=== PATIENT | female | born 1965 | race Caucasian/White ===

== ENCOUNTER → 2018-01-30 14:11 | Outpatient (CLI) | payer MEDICAID, SELFPAY ==
--- NOTE | 2018-01-30 14:12 | CT_ITS ---
STUDY: CT CHEST WITHOUT CONTRAST REASON FOR EXAM: Female, 52 years old. Cough. Chest heaviness. 40 pack-year smoking history. Abnormal chest x-ray. RADIATION DOSAGE (If Supplied By Facility): CTDIvol = ( 7.12 ) mGy, DLP = ( 231.30 ) mGycm TECHNIQUE: Transaxial imaging was performed without the administration of intravenous contrast material. Multiplanar coronal and sagittal images were reformatted. Individualized dose optimization techniques were used for this CT. COMPARISON: Chest x-ray, September 21, 2017. FINDINGS: The lungs are hyperexpanded. There are mild emphysematous changes most marked in the lung apices. There is no mass or infiltrate. There is no demonstrated pleural abnormality. Normal heart and pericardium. There is nonspecific subcentimeter mediastinal lymphadenopathy. Normal hilar regions. Normal unenhanced pulmonary arteries. Normal aorta arch and descending thoracic aorta. There are degenerative changes of the lower thoracic spine. There is no demonstrated abnormality of the visualized upper abdomen. CT/Chest without Contrast IMPRESSION: 1. Emphysematous changes in lungs without mass or infiltrate. 2. Nonspecific mediastinal lymphadenopathy. 3. Mild degenerative changes of the lower thoracic spine. Electronically Signed: Casper Bowen DO at 17:03 EDT Tel [phone], Service support ,
== END ==
PROVIDERS: Family Provider Internal Medicine; PCP Internal Medicine; Visit Provider Nurse Practitioner Acute Care
DX: R05 Cough (principal)
CPT/HCPCS: 71250

== ENCOUNTER 2018-07-27 10:06 | Day surgery (SDC) | payer MEDICAID, SELFPAY ==
--- NOTE | 2018-07-27 | IMM_PTH ---
PATIENT: CRISTIANA VERA I LOC: EN U#:[id number] AGE/SX: 53/F ROOM: RE07/27/[address]: Dr. Vineet Stacy MD : 1965 BED: DIS: 07/27/2018 SPEC #: [id number] RECD: 07/30/18 10:09 STATUS: NAZ LATRELL #: [id number] HOLGER: 07/27/18 00:[address]: Vineet Stacy DEPT: IMMUNOHISTOCHEMISTRY RECD BY: Waleska Goddard ENTERED: 07/30/18 10:09 SP TYPE: IMMUNO OTHR DR: Dr. Carmela Gonzalez MD Tissues: A - Stomach, NOS B - Stomach, NOS Procedures: H Pylori (initial) PHYSICIAN & INSTITUTION [place] [id number] SPECIMEN INFORMATION: Tissue Source: A ? Antral biopsy, B ? Gastric ulcer biopsy Clinical Info: History of ulcer Specimen Number: [id number] A & B CPT code: 73685 x2 METHODOLOGY: Deparaffinized sections of prefer/formalin-fixed tissue or PAP/DQ stained slides are incubated with monoclonal/polyclonal antibodies/oligonucleotide probes. Localization is made via biotin free immunoperoxidase method. Appropriate controls are performed and reacted as expected. Results on target cell population are indicated in the following table: RESULTS: ANTIBODY / CLONE RESULT Block A H Pylori (polyclonal) negative Block B H Pylori (polyclonal) negative These tests were developed and their performance characteristics determined by [facility]. They may not have been cleared or approved by the U.S. Food and Drug Administration. The FDA has determined that such clearance or approval is not necessary. INTERPRETATION: A. Antral biopsy: Negative for Helicobacter pylori organisms. B. Gastric ulcer biopsy: Negative for Helicobacter pylori organisms. SJ:pawan 07/30/18
--- NOTE | 2018-07-27 | GASB_PTH ---
PATIENT: CRISTIANA VERA I LOC: EN U#:[id number] AGE/SX: 53/F ROOM: RE07/27/[address]: Dr. Vineet Stacy MD : 1965 BED: DIS: 07/27/2018 SPEC #: [id number] RECD: 07/27/18 14:20 STATUS: NAZ LATRELL #: [id number] HOLGER: 07/27/18 00:[address]: Vineet Stacy DEPT: SURGICAL PATHOLOGY RECD BY: Otilio Arana ENTERED: 07/27/18 14:20 SP TYPE: Gastric Bx OTHR DR: Dr. Carmela Gonzalez MD Tissues: A - Gastric mucous membrane B - Gastric mucous membrane Procedures: Surgery Specimen Level IV HEADER OPERATION: EGD ([facility] [place] PRE-OP DIAGNOSIS: History of ulcer TISSUE SUBMITTED: A ? Antral biopsy for H. pylori and pathology, B ? Gastric ulcer biopsy MICROSCOPIC DIAGNOSIS A. Antral biopsy: Mild gastritis. B. Gastric ulcer, biopsy: Mild gastritis. SOL:pawan 07/30/18 COMMENT A & B. The results of immunohistochemistry for Helicobacter pylori will be reported separately ([id number]). MICROSCOPIC DESCRIPTION Slides are reviewed. A & B. The specimen shows fragments of gastric mucosa with chronic inflammatory cell infiltrates in the lamina propria consisting of lymphocytes and plasma cells, consistent with mild chronic gastritis. GROSS DESCRIPTION A - Received in fixative is one container labeled with the patient's name and designated antral biopsy. The specimen consists of two irregular fragments of light logan soft tissue that in aggregate measure 1 x 0.2 x 0.1 cm. The specimen is totally submitted in one cassette. B - Received in fixative is one container labeled with the patient's name and designated gastric ulcer biopsy. The specimen consists of one irregular fragment of light logan soft tissue that measures 0.3 x 0.3 x 0.1 cm. The specimen is totally submitted in one cassette. / SOL:pawan 07/27/18 TC:5 [facility]: [id number] x2
[2018-07-27 10:29] VITALS: BP 111/90; PULSE 83; RESP 18; TEMP 36.7; O2SAT 99; BMI 21.2
--- NOTE | 2018-07-27 11:35 | PCM.HP.STD ---
Problem List (1) Peptic ulcer disease Status: Chronic History of Present Illness Date of Admission: 07/27/18 The patient is a 53 year old F who had an EGD in August of last year which showed a large pyloric ulcer. She was started on omeprazole and I recommended that she come back in in a month to ensure healing but she never followed up. She followed up recently for refill of her omeprazole and I recommended repeat scope to ensure that this is healed. She has no complaints today. Past Medical History Past Medical History (Chronic Problems): Chronic Problems (Last Reviewed 05/28/18 @ 13:54 by Jailyn Rucker) Osteopenia with high risk of fracture (Chronic) Hypoglycemia (Chronic) Osteoporosis (Chronic) Peptic ulcer disease (Chronic) Medical History: Medical History (Last Reviewed 05/28/18 @ 13:54 by Jailyn Rucker) Hypoglycemia (Chronic) E16.2 Osteoporosis (Chronic) M81.0 Peptic ulcer disease (Chronic) K27.9 Epigastric abdominal pain (Acute) R10.13 Unintentional weight loss (Acute) R63.4 Gastric ulcer K25.9 Hepatitis C B19.20 Occult blood in stools R19.5 Rectal prolapse K62.3 1999 & 2002 Current chronic use of systemic steroids Z79.52 Depression F32.9 Diverticulitis K57.92 Nicotine dependence, uncomplicated F17.200 Postmenopausal Z78.0 Seasonal allergies J30.2 Seizures R56.9 Allergies morphine Allergy (Verified 07/27/18 10:27) Swelling Home Medications: Ambulatory Orders Medication Instructions Recorded Loratadine [Loratadine] 10 mg PO DAILY 06/08/16 Oxycodone HCl/Acetaminophen 1 tab PO Q8H PRN PRN 06/08/16 [Percocet 5/325] Amitriptyline HCl [Elavil] 50 mg PO QHS 08/21/17 L.acidoph,Paracasei, B.lactis 1 ea PO DAILY 08/21/17 [Probiotic] alprazolam 1 mg tablet 1 mg PO BID PRN tab 10/26/17 cetirizine 10 mg capsule 10 mg PO QDAY 10/26/17 tizanidine 2 mg tablet 2 mg PO DAILY tab 10/26/17 albuterol sulfate HFA 90 2 puff INHALATION Q4H PRN #18 g 11/30/17 mcg/actuation aerosol inhaler calcium carbonate 600 mg calcium 600 mg PO BID #90 tab 12/19/17 (1,500 mg) tablet cholecalciferol (vitamin D3) 2,000 2,000 unit PO QDAY #90 cap 12/19/17 unit capsule denosumab 60 mg/mL subcutaneous 60 mg SC [id number] #1 ml 12/22/17 syringe polyethylene glycol 3350 17 17 g PO QDAY PRN #238 g 05/17/18 gram/dose oral powder fluticasone 50 mcg/actuation nasal 2 spray INTRANASAL QDAY #15.8 g 05/31/18 spray,suspension docusate sodium 100 mg capsule 100 mg PO QDAY #60 cap 06/12/18 omeprazole 40 mg capsule,delayed 40 mg PO DAILY #60 cap 07/02/18 release simethicone 125 mg capsule 250 mg PO TID #90 cap 07/12/18 Surgical History: Surgical History (Last Reviewed 05/28/18 @ 13:54 by Jailyn Rucker) History of endoscopy Z98.890 2017 history of rectal prolapse history of uterine ablation H/O gastric bypass Z98.890 Surgical History: no surgical history Smoking Status: Current every day smoker Review of Systems Constitutional: Denies: Anorexia, Fever HEENT: Denies: Difficulty Swallowing Cardiovascular: Denies: Chest Pain Respiratory: Denies: Shortness of Breath Gastrointestinal: Denies: Abdominal Pain, Nausea Musculoskeletal: Denies: Joint Tenderness Neurological: Denies: Confusion Psychiatric: Reports: Anxiety VTE Information - Inpt Only VTE Present on Admission: No - Physical Exam General: Alert, Oriented x3 Oral: Moist Mucosa Neck: Supple Lungs: Normal air movement Cardiovascular: Regular rate, Regular Rhythm Abdomen: Soft, Non Tender, Non-Distended Vital Signs Temp Pulse Resp BP Pulse Ox 98.1 F 83 18 111/90 H 99 07/27/18 10:29 07/27/18 10:29 07/27/18 10:29 07/27/18 10:29 07/27/18 10:29 Oxygen Delivery Method Room Air Weight: 112 lb 6.972 oz Body Mass Index (BMI) 21.2 Assessment/Plan All Active Problems (Last Reviewed 05/28/18 @ 13:54 by Jailyn Rucker) Epigastric abdominal pain (Acute) Unintentional weight loss (Acute) 53-year-old female with pyloric ulcer 1. Plan for EGD today to ensure that the ulcer is healed. 2. I explained endoscopy in detail to the patient. I explained the risks including but not limited to stroke or heart attack with anesthesia, perforation of the GI tract, bleeding, infection. I explained that any of these could necessitate further emergency surgery. The patient understands and all questions were answered sufficiently. The patient wishes to proceed with procedure. Vineet Stacy MD Pager: [facility] [address] [place] [address] Office:
--- NOTE | 2018-07-27 11:51 | PCM.OPRPT ---
Problem List (1) Peptic ulcer disease Status: Chronic Report of Operation Date of Procedure: 07/27/18 Pre-Operative Diagnosis: Prepyloric ulcer Post-Operative Diagnosis: 1. Prepyloric ulcer. 2. Hiatal hernia Surgery/Procedure Performed:: EGD with biopsy Specimen's removed: 1. Antrum for H. pylori. 2. Prepyloric ulcer Description of Procedure: The major risks and benefits associated with the procedure were explained to the patient in detail. The patient verbalized understanding and agreement with the same. The patient was then placed in the left lateral decubitus position. IV sedation was started by anesthesia. The endoscope was then advanced under direct visualization over the tongue, into the esophagus, stomach and duodenum. It was slowly withdrawn and the mucosa was carefully evaluated. Duodenal mucosal abnormalities were not visualized. Gastric folds were normal. A biopsy of the antrum was performed with cold forceps. The patient did have a remnant of the prepyloric ulcer with some ulceration of about half of the pyloric channel. Biopsies were taken of the ulcer margin as well as the prepyloric margin. Retroflexed view of the stomach did reveal hiatal hernia. The scope was then withdrawn through the GE junction and careful examination did not demonstrate any mucosal abnormalities. No evidence of Leonard's esophagus was apparent. Careful examination of the remainder of the esophagus was normal. The scope was then withdrawn from the patient and the procedure terminated. It was well tolerated and there were no immediate complications. Recommendations: Continue PPI. The ulcer appears improved but it is still present. I did perform more biopsies to check for malignancy but I would have presume that after a year this would have grown much more if it was a malignancy. I am also rechecking H pylori.
[2018-07-27 11:55] VITALS: BP 102/73; BP 111/90; PULSE 105; RESP 18; TEMP 36.6; O2SAT 97
[2018-07-27 12:00] VITALS: BP 103/62; BP 111/90; PULSE 98; RESP 14; O2SAT 97
[2018-07-27 12:05] VITALS: BP 109/64; BP 111/90; PULSE 82; RESP 16; O2SAT 98
[2018-07-27 12:10] VITALS: BP 105/72; BP 111/90; PULSE 68; RESP 18; TEMP 36.2; O2SAT 100
[2018-07-27 12:23] VITALS: BP 111/90
== END 2018-07-27 12:35 | disposition home or self-care (01) ==
LOC: EN 10:07 → AC 10:08
PROVIDERS: Family Provider Internal Medicine; PCP Internal Medicine; Visit Provider Surgery
PROC: 0DJ08ZZ Inspection of Upper Intestinal Tract, Via Natural or Artificial Opening Endoscopic (ICD-10-PCS; CPT 43235; principal; 2018-07-27 10:55)
DX: K25.3 Acute gastric ulcer without hemorrhage or perforation (principal); K44.9 Diaphragmatic hernia without obstruction or gangrene; K29.70 Gastritis, unspecified, without bleeding; K27.7 Chronic peptic ulcer, site unspecified, without hemorrhage or perforation; R56.9 Unspecified convulsions; M81.0 Age-related osteoporosis without current pathological fracture; F32.9 Major depressive disorder, single episode, unspecified; F41.9 Anxiety disorder, unspecified; F17.200 Nicotine dependence, unspecified, uncomplicated; Z78.0 Asymptomatic menopausal state; Z79.52 Long term (current) use of systemic steroids; Z79.899 Other long term (current) drug therapy; Z86.19 Personal history of other infectious and parasitic diseases; Z98.84 Bariatric surgery status
CPT/HCPCS: 43239; 88305; 88342; J7120

== ENCOUNTER → 2018-10-08 09:37 | Outpatient (CLI) | payer MEDICAID, SELFPAY ==
--- NOTE | 2018-10-08 09:40 | BI_ITS ---
MAMMOGRAPHY - BILATERAL SCREENING REASON FOR EXAM: Female, 53 years old. Routine annual screening examination. PERTINENT HISTORY: Non-contributory. Occasional left breast tenderness. TECHNIQUE: Digital bilateral breast prashanth (3D mammographic acquisition) in the CC and MLO projections. 2-D mediolateral oblique (MLO) and craniocaudad (CC) views of both breasts were obtained. CAD: Full Field Digital Mammography with Computer Added Detection was performed. COMPARISON: Comparison is made with prior study dated October 05, 2017. FINDINGS: Breast Composition: The breasts are heterogeneously dense, which may obscure small masses. There are no dominant masses or suspicious calcifications. A tissue clip marker is once again seen in the slightly upper lateral aspect of the right breast. This is unchanged. No other significant abnormalities are identified. There has been no significant change since the prior study. BI/SCREENING MAMM (CAD), BILAT IMPRESSION: Stable bilateral screening mammogram. Yearly follow-up mammogram recommended. (A) ASSESSMENT CATEGORY: BIRADS Category 2: Benign. A letter regarding these results will be sent to the patient by the facility within 30 days. Approximately 10% of breast cancers are not detected by mammography. A normal mammogram should not delay biopsy of a clinically suspicious abnormality. [id number] Electronically Signed: Baron Henry MD at 8:21 EST Tel [phone], Service support ,
[2018-10-08 10:44] LABS: Absolute Neutrophil Count 3.5 X10^3/uL (2.0-7.7); Basophil# 0.08 X10^3/uL; Basophil% 1.1 % (0-1); Eosinophils% 2.6 % (0-5); Hematocrit 43.9 % (37-47); Hemoglobin 14.3 g/dl (12.0-15.0); Mean Corp Hgb Conc 32.6 g/gl (32-36); Mean Corpuscular Hgb 30.7 pg (27.0-32.0); Mean Corpuscular Volume 94.2 fL (81-99); Mean Platelet Vol. 9.4 fl (6.2-12.0); Monocyte# 0.39 X10^3/uL; Monocyte% 5.2 % (0-10); Neutrophil # 3.47 X10^3/uL (2.7-7.7); Platelet Count 403 K/mm3 (150-450); RBC Distribution Width CV 14.4 % (11.6-14.6); RBC Distribution Width SD 49.2 fl (35.1-43.9); Red Blood Count 4.66 M/mm3 (4.2-5.4); White Blood Count 7.6 K/mm3 (4.4-11.0)
[2018-10-08 10:45] LABS: POSITIVE COUNT NO; POSITIVE DIFFERENTIAL NO; POSITIVE MORPHOLOGY NO
== END ==
PROVIDERS: Family Provider Internal Medicine; PCP Internal Medicine; Referring Provider Internal Medicine; Visit Provider Internal Medicine
DX: Z12.31 Encounter for screening mammogram for malignant neoplasm of breast (principal); K27.9 Peptic ulcer, site unspecified, unspecified as acute or chronic, without hemorrhage or perforation
CPT/HCPCS: 36415; 77063; 77067; 85025

== ENCOUNTER → 2019-03-06 09:47 | Outpatient (CLI) | payer MEDICAID, SELFPAY ==
[2019-02-21 14:04] VITALS: BMI 21.5
[2019-03-06 13:38] LABS: Anion Gap 7 (5-15); BUN 16 mg/dL (7-18); Calcium,Total 9.1 mg/dL (8.5-10.1); Chloride 107 mmol/L (98-107); Creatinine, Serum 0.76 mg/dL (0.55-1.02); EST Glomerular Filtration Rate 84 mL/min (>60); Est Glom Filt Rate - Afr Amer 102 mL/min (>60); Glucose 100 mg/dL (74-106); Potassium 3.8 mmol/L (3.5-5.1); Sodium Level 139 mmol/L (136-145)
== END ==
PROVIDERS: Family Provider Internal Medicine; PCP Internal Medicine; Visit Provider Internal Medicine
DX: M81.0 Age-related osteoporosis without current pathological fracture (principal); K27.9 Peptic ulcer, site unspecified, unspecified as acute or chronic, without hemorrhage or perforation
CPT/HCPCS: 36415; 80048

== ENCOUNTER 2019-05-23 17:59 | Emergency (ER) | payer MEDICAID, SELFPAY ==
[2019-05-14 10:38] VITALS: BMI 21.5
[2019-05-23 18:00] VITALS: BP 117/68; PULSE 111; RESP 15; TEMP 35.8; O2SAT 97; BMI 21.9
--- NOTE | 2019-05-23 18:38 | ED.RN ---
Pt became upset with Dr after she stated that she needed and IV and some nutrition and MD stated that he was going to write her an RX and an IV was not needed. Pt jumped out of bed and stated that she would be calling the law.
--- NOTE | 2019-05-23 18:39 | ED.DCSUM_ITS ---
- ER Visit Summary Date of Service: 05/23/19 Chief Complaint: Sore throat History of Present Illness: The patient is a 53 F who presents with a sore throat that began 2 days ago. Patient went to [facility] emergency department last night and was given a prescription for penicillin. Patient states this has not helped. Patient describes the pain as burning. Patient states the pain is worse with swallowing. Patient states she has been unable to eat or drink anything for the past 2 days. Patient admits to some mild diarrhea. Patient admits to a cough but denies any sputum production. Patient denies any fevers or chills. Patient states she was started on Symbicort recently for her seasonal allergies. Physical Examination: Vital signs are stable. Patient is afebrile. Patient is in no acute distress. Oromucosa is pink and moist. There are white exudates noted on the soft palate, tonsils, tongue, and buccal mucosa. These appear to be consistent with oral candidiasis. Neck is supple. Trachea is midline. There is no JVD noted. Heart was regular rate and rhythm. Lungs are clear and equal bilaterally. Abdomen is soft. Bowel sounds are normal. There is no tenderness. Cranial nerves II through XII are intact. There are no focal motor or sensory deficits noted. Emergency Department Course and Treatment: Patient was advised that this is most likely oral candidiasis. Patient demanded IV fluids because she states she is unable to eat or drink anything. I explained to the patient that she is still well-hydrated and does not need IV fluids at this time. Patient became agitated and irate. Patient was yelling. Patient left the emergency department without signing any papers AGAINST MEDICAL ADVICE. Patient was not treated for her oral candidiasis because she left before any prescriptions could be sent. Patient was yelling when she left saying she was calling the law. Disposition: Discharged home Impression: Oral candidiasis This note was generated with [employer] dictation software. It may contain incorrect words, spelling, and punctuation that were not noted in review of the chart prior to signing ED Disposition - Plan for ED Patient: Disposition: Home or Assisted Living Diagnosis: Oral candidiasis Referrals: Carmela Gonzalez MD [Primary Care Provider] - 3-5 Days
[2019-05-23 18:47] VITALS: RESP 18
== END 2019-05-23 18:48 | disposition home or self-care (01) ==
PROVIDERS: Emergency Provider Emergency Medicine; Family Provider Internal Medicine; PCP Internal Medicine
DX: B37.0 Candidal stomatitis (principal); J30.2 Other seasonal allergic rhinitis; Z72.0 Tobacco use
CPT/HCPCS: 99282

== ENCOUNTER → 2019-06-07 08:39 | Outpatient (CLI) | payer MEDICAID, SELFPAY ==
[2019-06-07 08:18] VITALS: BMI 21.9
[2019-06-07 13:19] LABS: HIV - WCH Non-Reactive (Nonreactive)
== END ==
PROVIDERS: Family Provider Internal Medicine; PCP Internal Medicine; Visit Provider Internal Medicine
DX: B37.0 Candidal stomatitis (principal)
CPT/HCPCS: 36415; 86703

== ENCOUNTER → 2020-01-09 10:07 | Outpatient (CLI) | payer MEDICAID, SELFPAY ==
[2019-12-23 10:11] VITALS: BMI 22.8
--- NOTE | 2020-01-09 15:08 | PFTCOMP ---
COMPLETE PULMONARY FUNCTION TEST INTERPRETATION Brief HPI: Patient is a 54 year old female, currently under the care of Dr. Gonzalez, who presents to [facility] for complete pulmonary function tests secondary to diagnosis of dyspnea. Respiratory therapist reports good effort and reproducible results. Interpretation: Forced expiration spirometry shows no large airways obstructive ventilatory defect with an FEV1 of 106% predicted. There is no significant bronchodilator response by strict ATS criteria. Spirograms are of good quality and plateau normally. The respiratory flow volume loop shows a normal pattern. Lung volumes by body plethysmography show a normal total lung capacity at 5.1 L, 117% predicted. All other lung volumes are within normal limits. Diffusion capacity by carbon monoxide is normal at 75% predicted. The airway resistance is normal. Compared to previous pulmonary function tests from 10/10/17, there has been a significant change in FVC by 15%. Impression: Grossly normal pulmonary function testing
== END ==
PROVIDERS: PCP Internal Medicine; Referring Provider Internal Medicine; Visit Provider Internal Medicine
DX: R06.02 Shortness of breath (principal)
CPT/HCPCS: 94060; 94726; 94729

== ENCOUNTER → 2020-07-15 13:30 | Outpatient (CLI) | payer MEDICAID, SELFPAY ==
[2020-06-24 06:50] VITALS: BMI 23.4
--- NOTE | 2020-07-15 13:31 | CT_ITS ---
STUDY: LOW DOSE CT LUNG CANCER SCREENING REASON FOR EXAM: Female, 55 years old. PT STATED 42 YR 1 PPD SMOKER, NO OTHER HX RADIATION DOSAGE (If Supplied By Facility): CTDIvol = ( 2.01 ) mGy, DLP = ( 66.45 ) mGycm TECHNIQUE: No contrast was administered. Low dose technique was utilized (average mAS-38 and kVp 120). 1.25 mm axial source images with a slice interval of 1.25-mm were reconstructed in lung windows. 2.5 mm axial source images with a slice interval of 2.5-mm were reconstructed in lung windows. 5.0 mm axial source images with a slice interval of 5.0-mm were reconstructed in soft tissue windows. Nodule measured using lung windows on PACS and/or independent workstation with automated measurement of minimum and maximum diameter. Nodule measurement reported as average diameter rounded to the nearest whole number. Growth is defined as an increase ins size of greater than 1.5 mm. COMPARISON: Comparison is made with prior examination of 01/30/2018. NODULES: No pulmonary nodules are seen. Emphysema: Emphysematous changes with bullous formation in the upper lobes more prominent in the right upper lobe. Endobronchial lesion: None Aorta: Unremarkable. Coronary arteries: Coronary artery calcification. Mediastinal nodes: Small benign appearing mediastinal lymph nodes. Other chest and abdominal findings: Small hiatal hernia. CT/Low Dose CT Lung Screening IMPRESSION: Lung-RADS category 2 - Continue annual screening with LDCT in 12 months. IMPORTANT NOTES FOR USE: ACR Lung-RADS Version 1.0 Assessment Categories Release Date: March 17, 2014 Category: Coded 0-4 bases on nodule(s) with highest degree of suspicion. Negative screen is defined as categories 1 and 2; a positive screen is defined as categories 3 and 4. Category 3 and 4A nodules that are unchanged on interval CT should be coded as category 2, and individuals returned to screening in 12 months. Category 4X: Category 3 or 4 nodules with additional imaging findings that increase the suspicion of lung cancer, such as spiculation, GGN that doubles in size in 1 year, enlarged lymph notes, etc. Category Modifiers: S (significant finding unrelated to lung cancer) and C (prior history of treated lung cancer) may be added to the 0-4 Lung-RADS Electronically Signed: Baron Henry, at 14:08 EDT , Service support ,
== END ==
PROVIDERS: PCP Internal Medicine; Referring Provider Internal Medicine Critical Care Medicine; Visit Provider Internal Medicine Critical Care Medicine
DX: Z12.2 Encounter for screening for malignant neoplasm of respiratory organs (principal); F17.210 Nicotine dependence, cigarettes, uncomplicated
CPT/HCPCS: G0297

== ENCOUNTER → 2020-08-05 14:44 | Outpatient (CLI) | payer MEDICAID, SELFPAY ==
[2020-06-24 06:50] VITALS: BMI 23.4
--- NOTE | 2020-08-05 14:45 | ECHOD_ITS ---
Reason For Study: Dyspnea/SOB Procedure This was a 2D Doppler, Color Flow transthoracic echocardiogram. The exam was of adequate technical quality. Exam performed in department. Left Ventricle Normal LV size. Left ventricular systolic function is normal. The estimated ejection fraction is 65 %. No evidence for diastolic dysfunction. No regional wall motion abnormalities noted. Right Ventricle Normal RV size. Normal systolic function. Atria Normal left atrium. Normal right atrium. No doppler evidence for ASD. Mitral Valve There is no mitral annular calcification. Normal mitral valve. Trivial mitral valve insufficiency. Tricuspid Valve Normal tricuspid valve. Trivial tricuspid valve insufficiency. Right ventricular systolic pressure estimated to be 26 mmHg. Aortic Valve Trisinus/trileaflet aortic valve. Normal aortic valve. Pulmonic Valve The pulmonic valve is not well visualized. Great Vessels Normal sized aortic root. Pericardium/Pleural No pericardial effusion. MMode/2D Measurements & Calculations LVIDd: 3.9 cm IVSd: 1.1 cm Ao root diam: 2.7 cm LVIDs: 2.4 cm LVPWd: 0.95 cm LA dimension: 3.3 cm RVDd: 3.2 cm FS: 39.0 % LAV(MOD-bp): 25.0 ml LA A4 area: 10.8 cm2 RA A4 area: 9.4 cm2 LAV(MOD-bp) Indexed: 16.5 ml/m2 LAV(MOD-sp2): 27.5 ml LAV(MOD-sp4): 23.5 ml Time Measurements MV dec time: 0.25 sec Doppler Measurements & Calculations MV E max gabriel: 55.0 cm/sec Lat Peak E' Gabriel: 7.9 cm/sec Med Peak E' Gabriel: 6.8 cm/sec MV A max gabriel: 85.7 cm/sec E/E' lat: 6.9 E/E' med: 8.0 MV E/A: 0.64 MV V2 max: 100.5 cm/sec MV P1/2t max gabriel: 56.9 cm/sec Ao V2 max: 111.6 cm/sec MV max P.0 mmHg MV P1/2t: 76.3 msec Ao max P.0 mmHg MV V2 mean: 47.2 cm/sec MV dec slope: 218.7 cm/sec2 MV mean P.1 mmHg MVA(P1/2t): 2.9 cm2 MV V2 VTI: 17.2 cm LV V1 max: 114.5 cm/sec PA V2 max: 79.0 cm/sec TR max gabriel: 242.1 cm/sec LV V1 max P.2 mmHg TR max P.4 mmHg Interpretation Summary Left ventricular systolic function is normal. The estimated ejection fraction is 65 %. Trivial mitral valve insufficiency. Trivial tricuspid valve insufficiency. Right ventricular systolic pressure estimated to be 26 mmHg. No evidence for diastolic dysfunction. Ordering Physician: Elías Mckinney Referring Physician: Carmela Gonzalez Performed By: Tarik Sargent RCS
== END ==
PROVIDERS: PCP Internal Medicine; Referring Provider Internal Medicine Critical Care Medicine; Visit Provider Internal Medicine Critical Care Medicine
DX: R06.02 Shortness of breath (principal); F17.210 Nicotine dependence, cigarettes, uncomplicated
CPT/HCPCS: 93306

== ENCOUNTER → 2021-02-24 09:54 | Outpatient (CLI) | payer MEDICAID, SELFPAY ==
[2020-09-04 13:09] VITALS: BMI 22.8
[2021-02-24 12:06] LABS: Absolute Lymphocyte Count 2.73 X10^3/uL (0.83-4.51); Absolute Neutrophil Count 3.7 X10^3/uL (2.0-7.7); Basophil# 0.04 X10^3/uL; Basophil% 0.5 % (0-1); Eosinophil# 0.28 X10^3/uL; Eosinophils% 3.8 % (0-5); Hematocrit 37.5 % (37-47); Hemoglobin 12.2 g/dL (12.0-15.0); Lymphocyte # 2.73 X10^3/ul (4.0); Mean Corp Hgb Conc 32.5 g/dL (32-36); Mean Corpuscular Hgb 31.2 pg (27.0-32.0); Mean Corpuscular Volume 95.9 fL (81-99); Mean Platelet Vol. 9.6 fl (6.2-12.0); Monocyte# 0.59 X10^3/uL; NRBC Flagged by Analyzer 0 % (0-5); Neutrophil # 3.71 X10^3/uL (2.7-7.7); Neutrophil % 50.4 % (47-70); Platelet Count 419 K/mm3 (150-450); RBC Distribution Width CV 14.5 % (11.6-14.6); RBC Distribution Width SD 50.8 fl (35.1-43.9); Red Blood Count 3.91 M/mm3 (4.2-5.4); White Blood Count 7.4 K/mm3 (4.4-11.0)
[2021-02-24 12:27] LABS: AST(SGOT) 36 U/L (15-37); Alanine Aminotransfer ALT/SGPT 31 U/L (13-56); Albumin, Serum 3.6 g/dL (3.2-5.0); Alkaline Phosphatase 115 U/L (45-117); Amylase 49 U/L (25-115); Anion Gap 3 (5-15); BUN 24 mg/dL (7-18); Calcium,Total 8.9 mg/dL (8.5-10.1); Chloride 106 mmol/L (98-107); Cholesterol 226 mg/dL (200); Creatinine, Serum 0.54 mg/dL (0.55-1.02); EST Glomerular Filtration Rate 123 mL/min (>60); Est Glom Filt Rate - Afr Amer 149 mL/min (>60); Globulin 3.6 g/dL (2.2-4.2); Glucose 86 mg/dL (74-106); High Density Lipoprotein 35 mg/dL; Lipase 122 U/L (73-393); Potassium 4.4 mmol/L (3.5-5.1); Protein, Total 7.2 g/dL (6.4-8.2); Sodium Level 138 mmol/L (136-145); Thyroid Stim Hormone (TSH) 3.27 uIU/mL (0.358-3.74); Triglycerides 254 mg/dL; Very Low Density Lipoprotein 51 mg/dL (5-40)
[2021-02-24 12:51] LABS: Vitamin D,25 Hydroxy 24.4 ng/mL
== END ==
PROVIDERS: PCP Internal Medicine; Referring Provider Nurse Practitioner Family; Visit Provider Nurse Practitioner Family
DX: K27.9 Peptic ulcer, site unspecified, unspecified as acute or chronic, without hemorrhage or perforation (principal); M85.80 Other specified disorders of bone density and structure, unspecified site; R10.9 Unspecified abdominal pain; R10.13 Epigastric pain; R43.0 Anosmia
CPT/HCPCS: 36415; 80053; 80061; 82150; 82306; 83690; 84443; 85025; 86769

== ENCOUNTER 2021-03-26 06:06 | Day surgery (SDC) | payer MEDICAID, SELFPAY ==
[2021-03-02 09:16] VITALS: BMI 23.0
[2021-03-26] VITALS (7 sets, daily range): BP systolic 90–143; BP diastolic 57–92; PULSE 80–108; RESP 16; TEMP 36.5–36.8; O2SAT 94–98; BMI 23.6
--- NOTE | 2021-03-26 06:31 | PCM.HP.BLA ---
History and Physical Date of Admission: 03/26/21 Intake Vital Signs 03/02/21 Height 5 ft 1 in 03/02/21 Weight: 122 lb 03/02/21 BMI 23.0 03/02/21 BP 123/84 H 03/02/21 Blood Pressure Location Rt brachial 03/02/21 Position Sitting 03/02/21 Respiration 16 03/02/21 Pulse 103 H 03/02/21 Pulse Source Monitor 03/02/21 Temp 97.8 F 03/02/21 Temp Source Temporal 03/02/21 Pulse Oximetry (%) 97 03/02/21 Oxygen Delivery Method room air Intake Visit Reasons: DIAPHRAGMATIC HERNIA/HIATAL? Chief Complaint: Abdominal cramping Medical Laboratory Manager Required: No Is patient in pain?: Yes (Lower abdomen tenderness) Pain scale (1-10): 2 Allergies Penicillins Allergy (Severe, Verified 03/02/21 09:18) Hivestramadol Allergy (Intermediate, Verified 03/02/21 09:18) rashmorphine Allergy (Verified 03/02/21 09:18) Swelling Medications polyethylene glycol 3350 17 gram/dose oral powder 17 g PO QDAY PRN #238 g 05/17/18 [Rx Confirmed 03/02/21] simethicone 125 mg capsule 250 mg PO BID PRN #60 cap 05/14/19 [Rx Confirmed 03/02/21] albuterol sulfate 90 mcg/actuation aerosol inhaler 2 puff INHALATION Q4H PRN #8.5 g 09/11/19 [Rx Confirmed 03/02/21] inhalational spacing device See Rx Instructions .ROUTE .MEDSUPPLY #1 ea 01/21/20 [Rx Confirmed 03/02/21] buspirone 15 mg tablet 15 mg PO BID #180 tab 03/02/20 [Rx Confirmed 03/02/21] triamcinolone acetonide 0.1 % topical cream 1 applic TOPICAL DAILY PRN #453.6 g 03/09/20 [Rx Confirmed 03/02/21] hydrocortisone 2.5 % topical cream 1 applic TOPICAL BID PRN #30 g 04/08/20 [Rx Confirmed 03/02/21] denosumab 60 mg/mL subcutaneous syringe 60 mg SC [id number] #1 ml 04/15/20 [Rx Confirmed 03/02/21] hydroxyzine HCl 25 mg tablet 25 mg PO Q6H PRN #30 tab 04/20/20 [Rx Confirmed 03/02/21] albuterol sulfate 2.5 mg INHALATION Q4H PRN #180 ml 06/24/20 [Rx Confirmed 03/02/21] omeprazole 40 mg capsule,delayed release See Rx Instructions .ROUTE .COMPLEX #90 cap 09/22/20 [Rx Confirmed 03/02/21] montelukast 10 mg tablet 10 mg PO QPM #90 tab 11/05/20 [Rx Confirmed 03/02/21] docusate sodium 100 mg capsule 100 mg PO QDAY #60 cap 11/16/20 [Rx Confirmed 03/02/21] meclizine 25 mg tablet 25 mg PO BID PRN #30 tab 11/16/20 [Rx Confirmed 03/02/21] fluticasone propionate 50 mcg/actuation nasal spray,suspension See Rx Instructions .ROUTE .COMPLEX #15.8 ml 12/08/20 [Rx Confirmed 03/02/21] nystatin 100,000 unit/mL oral suspension 400,000 unit PO Q6H #480 ml 12/17/20 [Rx Confirmed 03/02/21] amitriptyline 100 mg tablet See Rx Instructions .ROUTE .COMPLEX #90 unspecified 01/18/21 [Rx Confirmed 03/02/21] lorazepam 0.5 mg tablet 0.5 mg PO DAILY PRN #15 tab 02/24/21 [Rx Confirmed 03/02/21] PFSH Medical History? (Updated 03/03/21 @ 15:[address] Vineet Stacy MD) Dysphagia (Acute) Gastric ulcer (Acute) Nicotine dependence, uncomplicated (Chronic) Current chronic use of systemic steroids (Chronic) Postmenopausal (Chronic) Occult blood in stools (Acute) Seizures (Chronic) Seasonal allergies (Chronic) Hepatitis C (Acute) Depression (Chronic) Diverticulitis (Chronic) Rectal prolapse (Acute) Smoking greater than 30 pack years (Chronic) Tobacco abuse (Chronic) Upper respiratory tract infection (Acute) Osteopenia with high risk of fracture (Chronic) Hypoglycemia (Chronic) Osteoporosis (Chronic) Peptic ulcer disease (Chronic) Epigastric abdominal pain (Acute) Unintentional weight loss (Acute) Surgical History? (Updated 03/02/21 @ 09:15 by Richa Coles) Hx of prior ablation treatment (Acute) Hx of cholecystectomy (Acute) history of rectal prolapse (Acute) History of endoscopy (Acute) History of hysterectomy (Acute) Family History? Mother ArthritisFather HypertensionGrandfather Heart diseaseUnknown Breast cancer,? Onset Age: 31 Social History? (Updated 03/03/21 @ 15:[address] Vineet Stacy MD) Smoking Status:? Current every day smoker tobacco type: cigarettes? second hand exposure:? Yes? counseling given:? provider counseling? alcohol intake:? never? substance use type:? does not use? caffeine:? Yes? what type of physical activity do you participate in:? walking? frequency:? daily? HPI HPI HPI: CRISTIANA VERA, is a 55 F who presents to the office today for? HPI HPI Surgical H&P: Yes HPI: CRISTIANA VERA, is a 55 F who presents to the office today for dysphagia.? The patient reports that she is also having lower abdominal pain.? She had a questionable hiatal hernia.? She has been seen in the past for prepyloric ulcer and had EGD and she is still on her PPI.? The patient reports that she is not having any upper pain and her lower pain is disappeared as well.? Last time she had lower abdominal pain was 2 days ago.? She says that she is having difficulty swallowing and feels food coming back up undigested. ROS General General: No weight change, appetite, fatigue, colon cancer, breast cancer or weakness HEENT HEENT: Yes difficulty swallowing; no eye injury, eye surgery, swollen glands or hoarseness Endo Endocrine: No thyroid disease, diabetes mellitus, thyroid cancer, Hair loss, heat intolerance or cold intolerance Skin Skin: Yes rash; no changing moles Musc Musculoskeletal: Yes back problems, arthritis and rheumatoid arthritis; no gout or joint pain Cardio Cardiovascular: No murmur, pacemaker, heart disease, atrial fibrillation, high blood pressure, heart attack, heart stent, palpitations, shortness of breat with exertion or chest pain Psych Psychiatric: Yes anxiety; no depression or hearing voices Resp Respiratory: Yes shortness of breath, No sleep apnea, No cough, Yes COPD, No asthma, Yes emphysema, No wheezing Gastro Gastrointestinal: Yes abdominal pain, No nausea or vomiting, No diarrhea, No constipation, No blood in stool, Yes acid reflux, No hemorrhoids, Yes ulcers, No gallbladder problem, No black,tarry stools Yao Hematologic: Yes anemia Neuro Neurologic: Yes numbness, Yes tingling, No weakness Exam Const General: cooperative Orientation: alert, oriented x3 Resp Effort & Inspection: normal respiratory effort Auscultation: clear to auscultation bilaterally Cardio Rate: regular rate Rhythm: regular rhythm Heart Sounds: no murmurs GI Inspection: non-distended Palpation: soft, nontender Assessment & Plan Problems 1. Esophageal dysphagia? R13.10 Plan The patient reports difficulty swallowing and vomiting of undigested food.? She also has been having lower abdominal pain but she says this does appear 2 days ago.? I would like her to continue to see if the lower abdominal pain returns and I would recommend an EGD with possible dilation for her dysphagia.? She is already on a PPI. I explained endoscopy in detail to the patient.? I explained the risks including but not limited to stroke or heart attack with anesthesia, perforation of the GI tract, bleeding, infection.? I explained that any of these could necessitate further emergency surgery.? The patient understands and all questions were answered sufficiently.? The patient wishes to proceed with procedure. Vineet Stacy MD Pager: [facility] [address] [place] [address], [address] [place] [address] Office: Assessment & Plan Assessment/Plan (1) Dysphagia: QUALIFIERS: Dysphagia type: esophageal phase Qualified Code(s): R13.10 - Dysphagia, unspecified
--- NOTE | 2021-03-26 07:00 | HP_ITS ---
Intake Vital Signs 03/02/21 Height 5 ft 1 in 03/02/21 Weight: 122 lb 03/02/21 BMI 23.0 03/02/21 BP 123/84 H 03/02/21 Blood Pressure Location Rt brachial 03/02/21 Position Sitting 03/02/21 Respiration 16 03/02/21 Pulse 103 H 03/02/21 Pulse Source Monitor 03/02/21 Temp 97.8 F 03/02/21 Temp Source Temporal 03/02/21 Pulse Oximetry (%) 97 03/02/21 Oxygen Delivery Method room air Intake Visit Reasons: DIAPHRAGMATIC HERNIA/HIATAL? 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 Is patient in pain?: Yes (Lower abdomen tenderness) Pain scale (1-10): 2 Allergies Penicillins Allergy (Severe, Verified 03/02/21 09:18) Hives tramadol Allergy (Intermediate, Verified 03/02/21 09:18) rash morphine Allergy (Verified 03/02/21 09:18) Swelling Medications polyethylene glycol 3350 17 gram/dose oral powder 17 g PO QDAY PRN #238 g 05/17/18 [Rx Confirmed 03/02/21] simethicone 125 mg capsule 250 mg PO BID PRN #60 cap 05/14/19 [Rx Confirmed 03/02/21] albuterol sulfate 90 mcg/actuation aerosol inhaler 2 puff INHALATION Q4H PRN #8.5 g 09/11/19 [Rx Confirmed 03/02/21] inhalational spacing device See Rx Instructions .ROUTE .MEDSUPPLY #1 ea 01/21/20 [Rx Confirmed 03/02/21] buspirone 15 mg tablet 15 mg PO BID #180 tab 03/02/20 [Rx Confirmed 03/02/21] triamcinolone acetonide 0.1 % topical cream 1 applic TOPICAL DAILY PRN #453.6 g 03/09/20 [Rx Confirmed 03/02/21] hydrocortisone 2.5 % topical cream 1 applic TOPICAL BID PRN #30 g 04/08/20 [Rx Confirmed 03/02/21] denosumab 60 mg/mL subcutaneous syringe 60 mg SC [id number] #1 ml 04/15/20 [Rx Confirmed 03/02/21] hydroxyzine HCl 25 mg tablet 25 mg PO Q6H PRN #30 tab 04/20/20 [Rx Confirmed 03/02/21] albuterol sulfate 2.5 mg INHALATION Q4H PRN #180 ml 06/24/20 [Rx Confirmed 03/02/21] omeprazole 40 mg capsule,delayed release See Rx Instructions .ROUTE .COMPLEX #90 cap 09/22/20 [Rx Confirmed 03/02/21] montelukast 10 mg tablet 10 mg PO QPM #90 tab 11/05/20 [Rx Confirmed 03/02/21] docusate sodium 100 mg capsule 100 mg PO QDAY #60 cap 11/16/20 [Rx Confirmed 03/02/21] meclizine 25 mg tablet 25 mg PO BID PRN #30 tab 11/16/20 [Rx Confirmed 03/02/21] fluticasone propionate 50 mcg/actuation nasal spray,suspension See Rx Instructions .ROUTE .COMPLEX #15.8 ml 12/08/20 [Rx Confirmed 03/02/21] nystatin 100,000 unit/mL oral suspension 400,000 unit PO Q6H #480 ml 12/17/20 [Rx Confirmed 03/02/21] amitriptyline 100 mg tablet See Rx Instructions .ROUTE .COMPLEX #90 unspecified 01/18/21 [Rx Confirmed 03/02/21] lorazepam 0.5 mg tablet 0.5 mg PO DAILY PRN #15 tab 02/24/21 [Rx Confirmed 03/02/21] [facility] Medical History (Updated 03/03/21 @ 15:[address] Vineet Stacy MD) Dysphagia (Acute) Gastric ulcer (Acute) Nicotine dependence, uncomplicated (Chronic) Current chronic use of systemic steroids (Chronic) Postmenopausal (Chronic) Occult blood in stools (Acute) Seizures (Chronic) Seasonal allergies (Chronic) Hepatitis C (Acute) Depression (Chronic) Diverticulitis (Chronic) Rectal prolapse (Acute) Smoking greater than 30 pack years (Chronic) Tobacco abuse (Chronic) Upper respiratory tract infection (Acute) Osteopenia with high risk of fracture (Chronic) Hypoglycemia (Chronic) Osteoporosis (Chronic) Peptic ulcer disease (Chronic) Epigastric abdominal pain (Acute) Unintentional weight loss (Acute) Surgical History (Updated 03/02/21 @ 09:15 by Richa Coles) Hx of prior ablation treatment (Acute) Hx of cholecystectomy (Acute) history of rectal prolapse (Acute) History of endoscopy (Acute) History of hysterectomy (Acute) Family History Mother Arthritis Father Hypertension Grandfather Heart disease Unknown Breast cancer, Onset Age: 31 Social History (Updated 03/03/21 @ 15:[address] Vineet Stacy MD) Smoking Status: Current every day smoker tobacco type: cigarettes second hand exposure: Yes counseling given: provider counseling alcohol intake: never substance use type: does not use caffeine: Yes what type of physical activity do you participate in: walking frequency: daily HPI HPI HPI: CRISTIANA VERA, is a 55 F who presents to the office today for HPI HPI Surgical H&P: Yes HPI: CRISTIANA VERA, is a 55 F who presents to the office today for dysphagia. The patient reports that she is also having lower abdominal pain. She had a questionable hiatal hernia. She has been seen in the past for prepyloric ulcer and had EGD and she is still on her PPI. The patient reports that she is not having any upper pain and her lower pain is disappeared as well. Last time she had lower abdominal pain was 2 days ago. She says that she is having difficulty swallowing and feels food coming back up undigested. ROS General General: No weight change, appetite, fatigue, colon cancer, breast cancer or weakness HEENT HEENT: Yes difficulty swallowing; no eye injury, eye surgery, swollen glands or hoarseness Endo Endocrine: No thyroid disease, diabetes mellitus, thyroid cancer, Hair loss, heat intolerance or cold intolerance Skin Skin: Yes rash; no changing moles Musc Musculoskeletal: Yes back problems, arthritis and rheumatoid arthritis; no gout or joint pain Cardio Cardiovascular: No murmur, pacemaker, heart disease, atrial fibrillation, high blood pressure, heart attack, heart stent, palpitations, shortness of breat with exertion or chest pain Psych Psychiatric: Yes anxiety; no depression or hearing voices Resp Respiratory: Yes shortness of breath, No sleep apnea, No cough, Yes COPD, No asthma, Yes emphysema, No wheezing Gastro Gastrointestinal: Yes abdominal pain, No nausea or vomiting, No diarrhea, No constipation, No blood in stool, Yes acid reflux, No hemorrhoids, Yes ulcers, No gallbladder problem, No black,tarry stools Yao Hematologic: Yes anemia Neuro Neurologic: Yes numbness, Yes tingling, No weakness Exam Const General: cooperative Orientation: alert, oriented x3 Resp Effort & Inspection: normal respiratory effort Auscultation: clear to auscultation bilaterally Cardio Rate: regular rate Rhythm: regular rhythm Heart Sounds: no murmurs GI Inspection: non-distended Palpation: soft, nontender Assessment & Plan Problems 1. Esophageal dysphagia R13.10 Plan The patient reports difficulty swallowing and vomiting of undigested food. She also has been having lower abdominal pain but she says this does appear 2 days ago. I would like her to continue to see if the lower abdominal pain returns and I would recommend an EGD with possible dilation for her dysphagia. She is already on a PPI. I explained endoscopy in detail to the patient. I explained the risks including but not limited to stroke or heart attack with anesthesia, perforation of the GI tract, bleeding, infection. I explained that any of these could necessitate further emergency surgery. The patient understands and all questions were answered sufficiently. The patient wishes to proceed with procedure. Vineet Stacy MD Pager: [facility] [address] [place] [address], [address] [place] [address] Office: Orders Orders: EGD Today R13.10 Coding Level of Care Code Off vis,est,level 3 Diagnoses Esophageal dysphagia R13.10 ??Dysphagia type: esophageal phase
[2021-03-26] MEDS: Lactated Ringers 1,000 ML 100 ML IV (07:02)
--- NOTE | 2021-03-26 07:58 | OP.EGD_ITS ---
Patient Name: Luanne Louise Procedure Date: 03/26/2021 6:54 AM Date of : 1965 Age: 55 Procedure: Upper GI endoscopy Indications: Dysphagia Providers: Vineet Stacy MD Referring MD: Carmela Gonzalez MD Medicines: Monitored Anesthesia Care Patient Profile: This is a 55 year old female. Refer to note in patient chart for documentation of history and physical. Complications: No immediate complications. Estimated blood loss: Minimal. Procedure: Pre-Anesthesia Assessment: - Prior to the procedure, a History and Physical was performed, and patient medications and allergies were reviewed. The patient's tolerance of previous anesthesia was also reviewed. The risks and benefits of the procedure and the sedation options and risks were discussed with the patient. All questions were answered, and informed consent was obtained. Prior Anticoagulants: The patient has taken no previous anticoagulant or antiplatelet agents. After reviewing the risks and benefits, the patient was deemed in satisfactory condition to undergo the procedure. After obtaining informed consent, the endoscope was passed under direct vision. Throughout the procedure, the patient's blood pressure, pulse, and oxygen saturations were monitored continuously. The gastroscope was introduced through the mouth, and advanced to the second part of duodenum. The upper GI endoscopy was accomplished without difficulty. The patient tolerated the procedure well. Scope In: 7:46:12 AM Scope Out: 7:51:12 AM Total Procedure Duration Time 0 hours 5 minutes 0 seconds Findings: One benign-appearing, intrinsic stenosis was found at the gastroesophageal junction. This stenosis was moderately severe (circumferential scarring or stenosis; an endoscope may pass) and. The stenosis was traversed after dilation. A TTS dilator was passed through the scope. Dilation with a 15-16.5-18 mm balloon dilator was performed to 18 mm. The dilation site was examined following endoscope reinsertion and showed complete resolution of luminal narrowing. Diffuse severe inflammation with hemorrhage characterized by adherent blood was found in the entire examined stomach. The examined duodenum was normal. Impression: - Benign-appearing esophageal stenosis. Dilated. - Gastritis with hemorrhage. - Normal examined duodenum. - No specimens collected. Recommendation: - Discharge patient to home. - Resume previous diet. - Continue present medications. - Use sucralfate tablets 1 gram PO QID. Procedure Code(s): --- Professional --- 23596, Esophagogastroduodenoscopy, flexible, transoral; with transendoscopic balloon dilation of esophagus (less than 30 mm diameter) Diagnosis Code(s): --- Professional --- K22.2, Esophageal obstruction K29.71, Gastritis, unspecified, with bleeding R13.10, Dysphagia, unspecified CPT copyright 2017 [employer]. All rights reserved. The codes documented in this report are preliminary and upon associate professor of literature review may be revised to meet current compliance requirements. Vineet Stacy MD 03/26/2021 7:57:20 AM This report has been signed electronically. Number of Addenda: 0 Note Initiated On: 03/26/2021 6:54 AM
--- NOTE | 2021-03-26 07:58 | OP.CCLET_ITS ---
03/26/2021 Carmela Gonzalez MD [address] [place] [address] [place] [address] Re : Upper GI endoscopy procedure for Luanne Louise Dear Dr. Gonzalez This procedure was performed on Friday, March 26, 2021. My impressions and recommendations are as follows: Impressions : - Benign-appearing esophageal stenosis. Dilated. - Gastritis with hemorrhage. - Normal examined duodenum. - No specimens collected. Recommendations : - Discharge patient to home. - Resume previous diet. - Continue present medications. - Use sucralfate tablets 1 gram PO QID. My findings are described in the full procedure note, which is enclosed. If I can be of further assistance, please feel free to contact me at Doctor phone number(s): , Work: . Sincerely, Vineet Stacy MD 03/26/2021 7:57:20 AM This report has been signed electronically.
== END 2021-03-26 08:53 ==
LOC: EN 06:06 → AC 06:06
PROVIDERS: PCP Internal Medicine; Referring Provider Internal Medicine; Visit Provider Surgery
PROC: 0DJ08ZZ Inspection of Upper Intestinal Tract, Via Natural or Artificial Opening Endoscopic (ICD-10-PCS; CPT 43235; principal; 2021-03-26 07:25)
DX: K22.2 Esophageal obstruction (principal); K29.71 Gastritis, unspecified, with bleeding; M81.0 Age-related osteoporosis without current pathological fracture; D64.9 Anemia, unspecified; K21.9 Gastro-esophageal reflux disease without esophagitis; J43.9 Emphysema, unspecified; F32.9 Major depressive disorder, single episode, unspecified; F17.210 Nicotine dependence, cigarettes, uncomplicated; Z90.49 Acquired absence of other specified parts of digestive tract; Z90.710 Acquired absence of both cervix and uterus; Z20.822 Contact with and (suspected) exposure to COVID-19; Z79.899 Other long term (current) drug therapy
CPT/HCPCS: 43249; 87426; C9803; J7120; J2405

== ENCOUNTER → 2021-08-19 10:54 | Outpatient (CLI) | payer MEDICAID, SELFPAY ==
[2021-08-19 12:35] LABS: Hematocrit 42.2 % (37-47); Mean Corp Hgb Conc 33.2 g/dL (32-36); Mean Corpuscular Hgb 32.2 pg (27.0-32.0); Mean Platelet Vol. 9.6 fl (6.2-12.0); Platelet Count 461 K/mm3 (150-450); RBC Distribution Width CV 13.4 % (11.6-14.6); RBC Distribution Width SD 47.8 fl (35.1-43.9); Red Blood Count 4.35 M/mm3 (4.2-5.4); White Blood Count 6.2 K/mm3 (4.4-11.0)
[2021-08-19 12:48] LABS: Vitamin D,25 Hydroxy 38.1 ng/mL
[2021-08-19 13:02] LABS: ALB/GLOB Ratio 0.8 RATIO (0.9-2.4); AST(SGOT) 16 U/L (15-37); Alanine Aminotransfer ALT/SGPT 23 U/L (13-56); Albumin, Serum 3.5 g/dL (3.2-5.0); Alkaline Phosphatase 84 U/L (45-117); Anion Gap 7 (5-15); BUN 16 mg/dL (7-18); BUN/Creat Ratio 21.4 RATIO (10-20); Calcium,Total 9.3 mg/dL (8.5-10.1); Chloride 105 mmol/L (98-107); Cholesterol 295 mg/dL (200); Creatinine, Serum 0.75 mg/dL (0.55-1.02); EST Glomerular Filtration Rate 85 mL/min (>60); Est Glom Filt Rate - Afr Amer 103 mL/min (>60); Globulin 4.5 g/dL (2.2-4.2); Glucose 105 mg/dL (74-106); High Density Lipoprotein 49 mg/dL; Potassium 4.5 mmol/L (3.5-5.1); Sodium Level 140 mmol/L (136-145); Thyroid Stim Hormone (TSH) 1.27 uIU/mL (0.358-3.74); Triglycerides 116 mg/dL; Very Low Density Lipoprotein 23 mg/dL (5-40)
== END ==
PROVIDERS: PCP Internal Medicine; Referring Provider Nurse Practitioner Family; Visit Provider Nurse Practitioner Family
DX: Z00.00 Encounter for general adult medical examination without abnormal findings (principal); M81.0 Age-related osteoporosis without current pathological fracture; E78.5 Hyperlipidemia, unspecified
CPT/HCPCS: 36415; 80053; 80061; 82306; 84443; 85027

== ENCOUNTER → 2021-09-07 13:02 | Outpatient (CLI) | payer MEDICAID, SELFPAY ==
--- NOTE | 2021-09-07 13:04 | BI_ITS ---
MAMMOGRAPHY - BILATERAL SCREENING REASON FOR EXAM: Female, 56 years old. Routine annual screening examination. PERTINENT HISTORY: Non-contributory. TECHNIQUE: Digital bilateral breast kavitha (3D mammographic acquisition) in the CC and MLO projections. 2-D mediolateral oblique (MLO) and craniocaudad (CC) views of both breasts were obtained. CAD: Full Field Digital Mammography with Computer Added Detection was performed. COMPARISON: Comparison is made with prior examination dated 10/08/2018 and 10/05/2017. FINDINGS: Breast Composition: The breasts are heterogeneously dense, which may obscure small masses. There are no dominant masses or suspicious calcifications. A tissue clip marker is once again seen in the slightly upper lateral aspect of the right breast No other significant abnormalities are identified. There has been no significant change since the prior study. BI/SCRN MAMM (CAD)W/KAVITHA BILAT IMPRESSION: Stable bilateral screening mammogram. Yearly follow-up mammogram recommended. (A) ASSESSMENT CATEGORY: BIRADS Category 2: Benign. A letter regarding these results will be sent to the patient by the facility within 30 days. Approximately 10% of breast cancers are not detected by mammography. A normal mammogram should not delay biopsy of a clinically suspicious abnormality. [id number] Electronically Signed: Baron Henry MD at 14:55 EDT , Service support ,
--- NOTE | 2021-09-07 13:15 | BD_ITS ---
STUDY: DUAL ENERGY X-RAY ABSORPTIOMETRY / DXA REASON FOR EXAM: Female, 56 years old. F/u osteoporosis TECHNIQUE: Bone Mineral Density (BMD) measurements of lumbar spine and bilateral hips were obtained. COMPARISON: Comparison is made with prior study dated 10/05/2017. FINDINGS: Lumbar Spine (L1-L4): g/cm2 (0.692) / T-score (-3.2) / Z-score (-2.1) Findings are suggestive of osteoporosis with a high fracture risk. Left Femur Total: g/cm2 (0.736) / T-score (-1.7) / Z-score (-1.0) Left Femoral Neck: g/cm2 (0.624) / T-score (-2.0) / Z-score (-0.9) Right Femur Total: g/cm2 (0.785) / T-score (-1.3) / Z-score (-0.5) Right Femoral Neck: g/cm2 (0.664) / T-score (-1.7) / Z-score (-0.6) The T-Scores on the most recent prior examination were: Lumbar Spine (L1-L4): There has been improvement of bone density since the previous examination. Left Femur Total: which represents an improvement of 6%. Right Femur Total: which represents an improvement of 18.2%. BD/Dexa Bone Density Study IMPRESSION: The patient is considered osteoporotic as outlined below according to World [employer] Organization (WHO) criteria with a high fracture risk. There has been improvement of bone density since the previous examination. Reference Information: The T-score is the number of standard deviations above or below the standard which is normal for young adults at their peak bone mineral density. The World Health Organization (WHO) interprets the T-scores as follows: Above -1 Normal bone density Between -1 and -2.5 Osteopenia Equal to / or below -2.5 Osteoporosis As a practical clinical guideline, osteopenia may be graded as follows: Mild -1 through -1.5 Moderate -1.6 through -2.0 Severe -2.1 through -2.4 The Z-score is the number of standard deviations above or below age-matched controls. A Z-score of less than -1.5 would be considered abnormal. References: 1. NIH Osteoporosis and Related Bone Diseases www osteo.org 2. International Society for Clinical Densitometry www iscd.org 3. National Osteoporosis Foundation www nof.org Electronically Signed: Baron Henry MD at 14:22 EDT , Service support ,
== END ==
PROVIDERS: PCP Internal Medicine; Referring Provider Nurse Practitioner Family; Visit Provider Nurse Practitioner Family
DX: M81.0 Age-related osteoporosis without current pathological fracture (principal); Z12.31 Encounter for screening mammogram for malignant neoplasm of breast
CPT/HCPCS: 77063; 77067; 77080

== ENCOUNTER 2022-02-17 10:56 | Outpatient (CLI) | payer MEDICAID, SELFPAY ==
[2022-02-17 12:33] LABS: Cholesterol 188 mg/dL (200); High Density Lipoprotein 53 mg/dL; Triglycerides 125 mg/dL; Very Low Density Lipoprotein 25 mg/dL (5-40)
[2022-02-17 12:43] LABS: Amphetamine Urine VISTA NEGATIVE (<1000 ng/mL); Barbiturate Urine VISTA NEGATIVE (< 200 ng/mL); Benzodiazepine Urine VISTA NEGATIVE (< 200 ng/mL); Cocaine Urine VISTA NEGATIVE (< 300 ng/mL); Ecstacy Urine VISTA NEGATIVE (< 500 ng/mL); Methadone Urine VISTA NEGATIVE (< 300 ng/mL); PCP Urine VISTA NEGATIVE (< 25 ng/mL); THC Urine VISTA NEGATIVE (< 50 ng/mL); Vista UDS pH Range 5
== END 2022-02-17 23:59 | disposition home or self-care (01) ==
LOC: BIMLAB 10:57
PROVIDERS: PCP Internal Medicine; Referring Provider Nurse Practitioner Family; Visit Provider Nurse Practitioner Family
DX: E78.5 Hyperlipidemia, unspecified (principal); F41.9 Anxiety disorder, unspecified
CPT/HCPCS: 36415; 80061; 80307

== ENCOUNTER → 2022-09-09 | Outpatient (CLI) | payer MEDICAID, SELFPAY ==
--- NOTE | 2022-09-09 10:09 | RAD_ITS ---
STUDY: X-RAY LEFT FOOT, THIRD TOE REASON FOR EXAM: Female, 57 years old. left 3rd toe injury TECHNIQUE: 3 view(s) of the toe were obtained. COMPARISON: None. FINDINGS: Normal visualized metatarsus. Normal metatarsophalangeal (M.T.P) joint. Normal interphalangeal joints. Normal phalanges and interphalangeal joints. The soft tissue structures are unremarkable. RAD/Toe(s) Min 2 Views IMPRESSION: Normal x-ray of the toe. Electronically Signed: Anuel Camarillo MD at 10:31 EDT ,
== END | disposition home or self-care (01) ==
LOC: MTRAD 10:09
PROVIDERS: PCP Internal Medicine; Referring Provider Nurse Practitioner Family; Visit Provider Nurse Practitioner Family
DX: S99.922A Unspecified injury of left foot, initial encounter (principal); X58.XXXA Exposure to other specified factors, initial encounter
CPT/HCPCS: 73660

== ENCOUNTER → 2023-02-03 | Outpatient (CLI) | payer MEDICAID, SELFPAY ==
[2023-02-03 12:31] LABS: Amphetamine Urine VISTA NEGATIVE (<1000 ng/mL); Barbiturate Urine VISTA NEGATIVE (< 200 ng/mL); Benzodiazepine Urine VISTA NEGATIVE (< 200 ng/mL); Cocaine Urine VISTA NEGATIVE (< 300 ng/mL); Ecstacy Urine VISTA NEGATIVE (< 500 ng/mL); Methadone Urine VISTA NEGATIVE (< 300 ng/mL); PCP Urine VISTA NEGATIVE (< 25 ng/mL); THC Urine VISTA NEGATIVE (< 50 ng/mL); Vista UDS pH Range 6
== END | disposition home or self-care (01) ==
LOC: LABSPEC 11:18
PROVIDERS: PCP Internal Medicine; Visit Provider Nurse Practitioner Family
DX: F41.9 Anxiety disorder, unspecified (principal)
CPT/HCPCS: 80307

== ENCOUNTER → 2023-08-28 | Outpatient (CLI) | payer MEDICAID, SELFPAY ==
[2023-08-28 12:15] LABS: Absolute Lymphocyte Count 2.68 X10^3/uL (0.83-4.51); Basophil# 0.09 X10^3/uL; Basophil% 1.2 % (0-1); Eosinophil# 0.12 X10^3/uL; Eosinophils% 1.6 % (0-5); Hematocrit 44.6 % (37-47); Hemoglobin 14.4 g/dL (12.0-15.0); Lymphocyte # 2.68 X10^3/ul (0.83-4.51); Lymphocyte % 35.5 % (19-41); Mean Corp Hgb Conc 32.3 g/dL (32-36); Mean Corpuscular Hgb 32.1 pg (27.0-32.0); Mean Corpuscular Volume 99.3 fL (81-99); Mean Platelet Vol. 9.6 fl (6.2-12.0); Monocyte# 0.59 X10^3/uL; Monocyte% 7.8 % (0-10); NRBC Flagged by Analyzer 0 % (0-5); Neutrophil # 4.04 X10^3/uL (2.7-7.7); Neutrophil % 53.5 % (47-70); Platelet Count 423 K/mm3 (150-450); RBC Distribution Width CV 13.2 % (11.6-14.6); RBC Distribution Width SD 48.4 fl (35.1-43.9); Red Blood Count 4.49 M/mm3 (4.2-5.4); White Blood Count 7.6 K/mm3 (4.4-11.0)
[2023-08-28 12:50] LABS: Vitamin D,25 Hydroxy 30.3 ng/mL
[2023-08-28 13:02] LABS: ALB/GLOB Ratio 0.9 RATIO (0.9-2.4); AST(SGOT) 16 U/L (15-37); Alanine Aminotransfer ALT/SGPT 24 U/L (13-56); Albumin, Serum 3.5 g/dL (3.2-5.0); Alkaline Phosphatase 68 U/L (45-117); Anion Gap 4 (5-15); BUN 12 mg/dL (7-18); BUN/Creat Ratio 15.9 RATIO (10-20); Calcium,Total 9.4 mg/dL (8.5-10.1); Chloride 106 mmol/L (98-107); Cholesterol 186 mg/dL (200); Creatinine, Serum 0.75 mg/dL (0.55-1.02); EST Glomerular Filtration Rate 84 mL/min (>60); Est Glom Filt Rate - Afr Amer 102 mL/min (>60); Glucose 103 mg/dL (74-106); High Density Lipoprotein 53 mg/dL; Potassium 4.8 mmol/L (3.5-5.1); Protein, Total 7.5 g/dL (6.4-8.2); Sodium Level 138 mmol/L (136-145); Triglycerides 159 mg/dL; Very Low Density Lipoprotein 32 mg/dL (5-40)
== END | disposition home or self-care (01) ==
LOC: BIMLAB 10:37
PROVIDERS: PCP Internal Medicine; Referring Provider Internal Medicine; Visit Provider Internal Medicine
DX: M81.0 Age-related osteoporosis without current pathological fracture (principal); E78.5 Hyperlipidemia, unspecified
CPT/HCPCS: 36415; 80053; 80061; 82306; 85025

== ENCOUNTER → 2023-09-28 | Outpatient (CLI) | payer MEDICAID, SELFPAY ==
--- NOTE | 2023-09-28 09:09 | BI_ITS ---
MAMMOGRAPHY - BILATERAL SCREENING REASON FOR EXAM: Female, 58 years old. Routine annual screening examination. PERTINENT HISTORY: Non-contributory. History of prior right ultrasound-guided breast biopsy. TECHNIQUE: Digital bilateral breast kavitha (3D mammographic acquisition) in the CC and MLO projections. 2-D mediolateral oblique (MLO) and craniocaudad (CC) views of both breasts were obtained. CAD: Full Field Digital Mammography with Computer Added Detection was performed. COMPARISON: Comparison is made with prior study dated September 07, 2021 and October 08, 2018. FINDINGS: Breast Composition: The breasts are heterogeneously dense, which may obscure small masses. There are no dominant masses or suspicious calcifications. Once again, a tissue clip marker is seen in the slightly upper lateral aspect of the right breast. Stable benign-appearing bilateral axillary lymph nodes. No other significant abnormalities are identified. There has been no significant change since the prior study. BI/SCRN MAMM (CAD)W/KAVITHA BILAT IMPRESSION: Stable bilateral screening mammogram. Yearly follow-up mammogram recommended. (A) ASSESSMENT CATEGORY: BIRADS Category 2: Benign. A letter regarding these results will be sent to the patient by the facility within 30 days. Approximately 10% of breast cancers are not detected by mammography. A normal mammogram should not delay biopsy of a clinically suspicious abnormality. [id number] Electronically Signed: Baron Henry MD at 10:10 EST ,
--- NOTE | 2023-09-28 09:15 | BD_ITS ---
STUDY: DUAL ENERGY X-RAY ABSORPTIOMETRY / DXA REASON FOR EXAM: Female, 58 years old. Postmenopausal TECHNIQUE: Bone Mineral Density (BMD) measurements of lumbar spine and bilateral hips were obtained. COMPARISON: Prior study dated: 09/07/2021 FINDINGS: Lumbar Spine (L1-L4): g/cm2 (0.708) / T-score (-3.1) / Z-score (-1.8) Left Femur Total: g/cm2 (0.773) / T-score (-1.4) / Z-score (-0.5) Left Femoral Neck: g/cm2 (0.641) / T-score (-1.9) / Z-score (-0.7) Right Femur Total: g/cm2 (0.737) / T-score (-1.7) / Z-score (-0.9) Right Femoral Neck: g/cm2 (0.587) / T-score (-2.4) / Z-score (-1.2) The T-Scores on the most recent prior examination were: Lumbar Spine (L1-L4): -3.2 Left Femoral Neck: -2.0 Right Femoral Neck: -1.7 BD/Dexa Bone Density Study IMPRESSION: The patient is considered osteoporotic as outlined below according to World [employer] (WHO) criteria with a high fracture risk. There has been no statistically significant change since the previous examination. Reference Information: The T-score is the number of standard deviations above or below the standard which is normal for young adults at their peak bone mineral density. The World Health Organization (WHO) interprets the T-scores as follows: Above -1 Normal bone density Between -1 and -2.5 Osteopenia Equal to / or below -2.5 Osteoporosis As a practical clinical guideline, osteopenia may be graded as follows: Mild -1 through -1.5 Moderate -1.6 through -2.0 Severe -2.1 through -2.4 The Z-score is the number of standard deviations above or below age-matched controls. A Z-score of less than -1.5 would be considered abnormal. References: 1. NIH Osteoporosis and Related Bone Diseases http://www.osteo.org 2. International Society for Clinical Densitometry http://www.iscd.org 3. National Osteoporosis Foundation http://www.nof.org Electronically Signed: Jose Jolly DO at 23:17 EST ,
== END | disposition home or self-care (01) ==
LOC: OPBD 09:07
PROVIDERS: PCP Internal Medicine; Referring Provider Internal Medicine; Visit Provider Internal Medicine
DX: M81.0 Age-related osteoporosis without current pathological fracture (principal); Z12.31 Encounter for screening mammogram for malignant neoplasm of breast
CPT/HCPCS: 77063; 77067; 77080

== ENCOUNTER → 2024-02-07 | Outpatient (CLI) | payer MEDICAID, SELFPAY ==
[2024-02-07 16:45] LABS: Amphetamine Urine VISTA NEGATIVE (<1000 ng/mL); Barbiturate Urine VISTA NEGATIVE (< 200 ng/mL); Benzodiazepine Urine VISTA NEGATIVE (< 200 ng/mL); Cocaine Urine VISTA NEGATIVE (< 300 ng/mL); Ecstacy Urine VISTA NEGATIVE (< 500 ng/mL); Methadone Urine VISTA NEGATIVE (< 300 ng/mL); PCP Urine VISTA NEGATIVE (< 25 ng/mL); THC Urine VISTA NEGATIVE (< 50 ng/mL); Vista UDS pH Range 5
== END | disposition home or self-care (01) ==
LOC: LABSPEC 14:36
PROVIDERS: PCP Internal Medicine; Referring Provider Internal Medicine; Visit Provider Internal Medicine
DX: F41.9 Anxiety disorder, unspecified (principal)
CPT/HCPCS: 80307